=== PATIENT | male | born 1990 | race Two or more races ===

== ENCOUNTER 2017-07-11 15:22 | Emergency (ER) | payer MEDICAID ==
[~2017-07-11] VITALS: Ht 177.8 cm; Wt 117.9 kg
[2017-07-11 15:32] VITALS: BP 119/71
[2017-07-11] MEDS ORDERED: IBUPROFEN 800 MG TAB PO ONE (17:45)
== END 2017-07-11 17:41 | disposition home or self-care (01) ==
LOC: ER 15:25
DX: S62.322A Displaced fracture of shaft of third metacarpal bone, right hand, initial encounter for closed fracture (principal); S62.324A Displaced fracture of shaft of fourth metacarpal bone, right hand, initial encounter for closed fracture; W22.8XXA Striking against or struck by other objects, initial encounter; Y93.66 Activity, soccer; Y99.9 Unspecified external cause status; Y92.89 Other specified places as the place of occurrence of the external cause
CPT/HCPCS: 29125; 73130

== ENCOUNTER 2018-01-10 10:17 | Emergency (ER) | payer MEDICAID ==
[~2018-01-10] VITALS: Ht 177.8 cm; Wt 113.4 kg
[2018-01-10 10:37] VITALS: BP 148/71
== END 2018-01-10 12:08 | disposition home or self-care (01) ==
LOC: ER 10:17
DX: S20.211A Contusion of right front wall of thorax, initial encounter (principal); W18.39XA Other fall on same level, initial encounter; Y93.89 Activity, other specified; Y92.89 Other specified places as the place of occurrence of the external cause; Y99.8 Other external cause status
CPT/HCPCS: 71101

== ENCOUNTER 2019-05-29 11:41 | Emergency (ER) | payer BC, MEDICAID ==
[~2019-05-29] VITALS: Ht 177.8 cm; Wt 127.0 kg
[2019-05-29 11:57] VITALS: BP 159/90
[2019-05-29] MEDS ORDERED: IBUPROFEN 800 MG TAB PO ONE (12:45)
== END 2019-05-29 13:16 | disposition home or self-care (01) ==
LOC: ER 11:50
DX: S40.012A Contusion of left shoulder, initial encounter (principal); W22.8XXA Striking against or struck by other objects, initial encounter; Y93.89 Activity, other specified; Y99.8 Other external cause status; Y92.89 Other specified places as the place of occurrence of the external cause
CPT/HCPCS: 73030